=== PATIENT | female | born 1985 | race African-American/Black ===

== ENCOUNTER 2021-08-05 07:30 | Inpatient (IN) ==
[2021-08-05] MEDS ORDERED: OXYTOCIN 30 UNITS/500 ML BAG IV PRN ×2 (08:06→09:16)
[2021-08-05 08:40] LABS: Hematocrit (blood only) 38.6 % (37-47); Hemoglobin 12.2 g/dL (12.0-16.0); Mean Corpuscular Hemoglobin 29.9 pg (25-34); Mean Corpuscular Hgb Conc 31.6 g/dL (32-36); Mean Corpuscular Volume 94.6 fL (80-100); Mean Platelet Volume 11.6 fL (7.4-10.4); Platelet Count 168 K/uL (130-400); RDW Coefficient of Variation 18.4 % (11.5-14.5); RDW Standard Deviation 64.4 fL (36.4-46.3); Red Blood Count 4.08 M/uL (4.2-5.4); White Blood Count 5.32 K/uL (4.8-10.8)
[2021-08-05] MEDS: LACTATED RINGER'S 1,000 ML IV PRN ×4 (08:57→20:52)
--- NOTE | 2021-08-05 09:21 | History & Physical Report ---
Date of Service August 05, 2021 Assessment & Plan (1) Chronic hypertension affecting : Plan: 36yo at 38w3d. presents for induction of labor secondary to chronic hypertension. 1. Fetus: Reactive NST/ Cat 1 2. Labor: s/p Brice. Pitocin per protocol. 3. GBS negative 4. cHTN: Continue home meds 5. Anemia: T&S (2) with 38 completed weeks gestation: Admission and Anticipated Discharge Date Admission Date: August 05, 2021 History of Present Illness Primary Care Provider: NO PCP 36yo at 38w4d Presents for induction of labor secondary to chronic hypertension. Patient Brice placed last night. Patient doing well today denying any leakage of fluid having irregular mild contractions. complicated by: CHTN on meds *Baby ASA daily start 12-28 wks, continue until delivery *wkly NST's @32wks and twice wkly @36 wks *Serial Growth US @ 24 (doppler only if abnml) *Baseline 24hr urine (additioinal PRN) - 281mg (04/28) *weekly RADHA's @ 32wk(if on meds) *Deliver [id number] - - On Labetalol 100mg BID Hx stillbirth at 26wks -Eval negative - Requesting q2week visits until 32 weeks Anemia LABS: Blood Type & RH A positive Antibody Screen negative HCT/HGB 12.9/38.4 Platelets 198 Pap Test normal in 2019 Chlamydia Gonorrhea Rubella immune RPR non reactive Urine Culture/Screen HBsAg non reactive HIV negative MCV 92.3 Ultrasound CF/SMA negative NT- normal Allergies Allergy/AdvReac Type Severity Reaction Status Date / Time No Known Allergies Allergy Verified 08/04/21 09:53 Home Medications Medication Instructions Recorded Confirmed Type aspirin 81 mg tablet,delayed 81 mg PO DAILY 03/10/21 08/04/21 History release (Adult Low Dose Aspirin) prenat.vits,reik,qei-ccmt-rjkgu 1 tab PO DAILY 03/10/21 08/04/21 History labetalol 100 mg tablet 100 mg PO BID #60 tab 04/02/21 08/04/21 Rx ferrous gluconate 324 mg (38 mg 324 mg PO DAILY #90 tab 06/02/21 08/04/21 Rx iron) tablet Patient History Social History (Updated 03/10/21 @ 11:07 by Cassie Zhang) Smoking Status: Never smoker Hx Alcohol Use: No Hx Substance Use: No Preferred Language: Senegalese Communication Ability: Effective Plug Stitcher Required: No Beliefs That Will Affect Care: Sikhism Sikhism Beliefs: mandaen marital status: marital status details: luis manuel (36) [phone] Current Living Situation: Spouse Current Living Situation Comment: lives with spouse, no pets. current occupational status: unemployed Feels Safe at Home: Yes Assistive Devices: Apnea Monitor Physical Exam Genitourinary: Manual OB Exam: + cervical dilation (3), + cervical effacement 70% and + station high OB Exam Monitor Tracing: + external FHT monitor used, + external uterine monitor used, + category I and + normal FHT variability; no early decelerations present, no late decelerations present and no variable decelerations Results & Data ([facility]) Vital Signs (Past 12 Hours) Vital Signs Temp Pulse Resp BP 08/05/21 08:29 36.6 C 66 16 123/71 Coding Level of Care Code None Diagnoses Chronic hypertension affecting O10.919 with 38 completed weeks gestation Z3A.38
[2021-08-05] MEDS ORDERED: fentaNYL citrate 100 MCG/2 ML VIAL ONE (14:13)
[2021-08-05] MEDS ORDERED: BUPIVACAINE 0.25% 30 ML VIAL ONE (14:13)
[2021-08-05] MEDS ORDERED: SODIUM CHLORIDE 0.9% INJ 10 ML VIAL ONE (14:13)
[2021-08-05] MEDS ORDERED: ePHEDrine sulfate 50 MG/ML AMP ONE (14:13)
[2021-08-05] MEDS ORDERED: fentaNYL 2MCG/ML ROPIVACAINE 1.25MG/ML 100 ML BAG EPI ONE (14:14)
--- NOTE | 2021-08-05 14:53 | Anesthesiology Consultation ---
Date of Service August 05, 2021 History Surgery Operation Date: 08/05/21 07:30 Proposed Procedures p Section in LD (Delivery of Baby through abdominal incision) - Reese Maradiaga MD Height/Weight Weight: 69.853 kg Allergies Allergy/AdvReac Type Severity Reaction Status Date / Time No Known Allergies Allergy Verified 08/05/21 10:52 Medications Home Medications Medication Instructions Recorded Confirmed Last Taken aspirin 81 mg tablet,delayed 81 mg PO DAILY 03/10/21 08/05/21 08/05/21 release (Adult Low Dose Aspirin) prenat.vits,erik,cam-oxod-wtada 1 tab PO DAILY 03/10/21 08/05/21 08/05/21 labetalol 100 mg tablet 100 mg PO BID #60 tab 04/02/21 08/05/21 08/05/21 ferrous gluconate 324 mg (38 mg 324 mg PO DAILY #90 tab 06/02/21 08/05/21 08/05/21 iron) tablet Active Medications Generic Name Dose Route Start Last Admin Trade Name Bárbara PRN Reason Stop Dose Admin Lactated Ringer's 1,000 mls @ 125 mls/hr 08/05/21 08:06 08/05/21 14:49 Lr IV 08/07/21 08:05 125 mls/hr .Q8H PRN Infusion L&D Protocol Protocol Oxytocin 30 units in 500 mls @ 8 mls/hr 08/05/21 09:16 08/05/21 11:45 Pitocin IV 08/07/21 09:15 0.48 units/hr .Q24H PRN 8 mls/hr Labor Induction/Augmentation Titration Protocol 0.48 UNITS/HR Past Medical History Medical History (Updated 08/05/21 @ 14:50 by Kyler Restrepo MD) Chronic hypertension affecting with 38 completed weeks gestation Past Surgical History Surgical History (Updated 08/05/21 @ 14:53 by Kyler Restrepo MD) Hx of dilation and curettage Social History Smoking Status: Never smoker Hx Alcohol Use: No Hx Substance Use: No Physical Exam Vital Signs Last Vital Signs Temp 36.6 C 08/05/21 11:42 Pulse 57 L 08/05/21 14:49 Resp 18 08/05/21 11:50 BP 131/62 08/05/21 14:49 Pulse Ox 100 08/05/21 14:49 Testing Laboratory Results 08/05/21 08:13 Blood Type A Positive 08/05/21 08:13 Antibody Screen NEGATIVE 08/05/21 08:13
[2021-08-05] MEDS ORDERED: ePHEDrine sulfate 50 MG/ML AMP IV PRN (15:11)
[2021-08-05] MEDS ORDERED: NALOXONE HCL 0.4 MG/1 ML VIAL/CARP IV PRN (15:11)
[2021-08-05] MEDS ORDERED: NALOXONE HCL 1 MG in SODIUM CHLORIDE 0.9% 1000ML 1,000 ML IV PRN (15:11)
[2021-08-05] MEDS ORDERED: fentaNYL 2MCG/ML ROPIVACAINE 1.25MG/ML 100 ML BAG EPI PRN (15:11)
[2021-08-05] MEDS ORDERED: ONDANSETRON INJ 2 MG/ML 2 ML VIAL IV PRN (15:11)
--- NOTE | 2021-08-05 17:06 | Labor Progress Brief Note ---
Date of Service August 05, 2021 Subjective Reason For Note: Routine Evaluation Assessment & Plan (1) Chronic hypertension affecting : Plan: 36yo at 38w3d. presents for induction of labor secondary to chronic hypertension. 1. Fetus: Reactive NST/ Cat 1 2. Labor:Progressing. s/p Brice. Pitocin per protocol. AROM clr 3. GBS negative 4. cHTN: Continue home meds 5. Anemia: T&S (2) with 38 completed weeks gestation: Admission and Anticipated Discharge Date Admission Date: August 05, 2021 Physical Exam Genitourinary: Manual OB Exam: + cervical dilation 4 cm, + cervical effacement 70% and + station -2 OB Exam Monitor Tracing: + external FHT monitor used, + external uterine monitor used, + category I and + normal FHT variability; no early decelerations present, no late decelerations present and no variable decelerations Results & Data ([facility]) Vital Signs (Past 12 Hours) Vital Signs Temp Pulse Resp BP Pulse Ox 08/05/21 16:59 61 100 08/05/21 16:54 63 100 08/05/21 16:49 61 100 08/05/21 16:44 62 100 08/05/21 16:39 62 138/62 100 08/05/21 16:34 59 L 100 08/05/21 16:29 63 100 08/05/21 16:25 59 L 121/61 08/05/21 16:24 57 L 100 08/05/21 16:19 61 100 08/05/21 16:14 63 100 08/05/21 16:09 63 122/82 100 08/05/21 16:04 63 119/64 100 08/05/21 15:59 63 100 08/05/21 15:54 60 100 08/05/21 15:50 16 08/05/21 15:49 59 L 100 08/05/21 15:44 59 L 100 08/05/21 15:39 53 L 99 08/05/21 15:34 58 L 100 08/05/21 15:29 59 L 100 08/05/21 15:24 57 L 99 08/05/21 15:22 63 106/59 L 08/05/21 15:19 61 102/56 L 100 08/05/21 15:16 58 L 113/56 L 08/05/21 15:14 54 L 100 08/05/21 15:13 51 L 111/57 L 08/05/21 15:10 56 L 110/58 L 08/05/21 15:09 36.4 C L 64 18 99 08/05/21 15:07 59 L 132/63 08/05/21 15:04 53 L 106/60 100 08/05/21 14:59 56 L 100 08/05/21 14:54 64 100 08/05/21 14:49 57 L 131/62 100 08/05/21 13:38 68 136/66 08/05/21 13:10 64 128/76 08/05/21 11:50 18 08/05/21 11:42 36.6 C 67 111/57 L 08/05/21 09:20 18 08/05/21 08:29 36.6 C 66 16 123/71 Coding Level of Care Code None Diagnoses Chronic hypertension affecting O10.919 with 38 completed weeks gestation Z3A.38
[2021-08-06] MEDS ORDERED: SUPERCREAM 0.870% 15 GM JAR EXT PRN (00:18)
[2021-08-06] MEDS ORDERED: BENZOCAINE 20% AER SPR 82.5 GM CAN EXT PRN (00:18)
[2021-08-06] MEDS ORDERED: HYDROCORTISONE ACETATE 25 MG SUPP PR PRN (00:18)
[2021-08-06] MEDS ORDERED: DIPHTHERIA/TETANUS/PERTUSSIS 0.5 ML SYR/VIAL IM ONE (00:18)
[2021-08-06] MEDS ORDERED: ACETAMINOPHEN 325 MG TAB PO PRN (00:18)
[2021-08-06] MEDS ORDERED: OXYTOCIN 30 UNITS/500 ML BAG IV PRN (00:18)
[2021-08-06] MEDS: IBUPROFEN 600 MG TAB PO PRN ×3 (01:03→20:20)
--- NOTE | 2021-08-06 01:14 | Anesthesia Procedure Note ---
Date of Service August 06, 2021 Anesthesia Post Epidural Note Vital Signs Vital Signs: Temp Pulse Resp BP Pulse Ox 37.1 C 58 L 18 121/61 99 08/05/21 20:55 08/06/21 01:06 08/06/21 01:05 08/06/21 01:06 08/06/21 00:24 Pain Intensity Bilateral Episiotomy/Laceration: Pain Intensity: 2 Notes Mental Status: alert / awake / arousable and participated in evaluation Nausea / Vomiting: adequately controlled Pain: adequately controlled Airway Patency, RR, SpO2: stable & adequate BP & HR: stable & adequate Hydration State: stable & adequate Neuraxial Anesthesia: was administered and sensory block is resolving Anesthetic Complications: no major complications apparent Epidural: Removed without complications and With tip intact
[2021-08-06 06:23] LABS: Hematocrit (blood only) 36.7 % (37-47); Hemoglobin 11.8 g/dL (12.0-16.0)
--- NOTE | 2021-08-06 07:06 | Obstetrical Progress Note ---
Date of Service <De Edge DO - Last Filed: 08/06/21 07:55> August 06, 2021 Assessment & Plan <De Edge DO - Last Filed: 08/06/21 07:55> (1) Encounter for care and examination after delivery: 36 yo post day 1 from vaginal delivery, doing well. -Continue routine post care. -vital signs reviewed and WNL. (Tmax 37.1) -Blood type A+, GBS negative, Rubella Immune -Encourage ambulation, monitor and control pain with Motrin, tylenol PRN, resume regular diet, monitor lochia. -encourage breast feeding. Already has breast pump ordered. -hemoglobin 11.8. <Reese Maradiaga MD - Last Filed: 08/09/21 08:20> (1) Encounter for care and examination after delivery: Subjective <De Edge DO - Last Filed: 08/06/21 07:55> Ambulation: ambulating normally Voiding: no voiding problems Passing Gas:: Yes Diet Tolerance:: regular diet Lochia:: Small Feeding Type:: breast feeding Current Pain Level(1-10): 0 Review of Systems Denies fever, chills, sweats Denies shortness of breath, difficulty breathing, chest pain, palpitations, chest pressure. Denies breast pain. Denies dysuria. Denies headache or changes in vision Physical Exam <De Edge DO - Last Filed: 08/06/21 07:55> General: Alert, oriented. No acute distress. Cardiac: Regular rate and rhythm, no murmurs/rubs/gallops. Respiratory: Clear to auscultation bilaterally a/p, no wheezes/rales/rhonchi. No increased work of breathing. Symmetrical chest rise. No respiratory distress. Abdomen: Soft, nontender, nondistended. Bowel sounds present. Uterus: Uterine fundus firm, palpable 2 cm below umbilicus. Lower Extremities: No lower extremity edema or swelling. No deep calf pain. Chon's negative bilaterally Results & Data ([facility]) <De Edge DO - Last Filed: 08/06/21 07:55> Vital Signs (Past 12 Hours) Vital Signs Temp Pulse Pulse Resp BP BP Pulse Ox 08/06/21 03:00 36.9 C 72 16 114/69 98 08/06/21 02:06 80 108/58 L 08/06/21 02:05 80 20 108/58 L 08/06/21 01:51 68 111/54 L 08/06/21 01:42 57 L 116/56 L 08/06/21 01:35 57 L 18 116/56 L 08/06/21 01:21 63 117/59 L 08/06/21 01:06 58 L 121/61 08/06/21 01:05 58 L 18 121/61 08/06/21 00:51 61 119/58 L 08/06/21 00:50 58 L 18 121/61 08/06/21 00:37 60 98/55 L 08/06/21 00:35 61 18 119/58 L 08/06/21 00:24 69 99 08/06/21 00:21 121 H 133/68 08/06/21 00:20 71 18 99 08/06/21 00:19 74 100 08/06/21 00:14 71 99 08/06/21 00:09 73 100 08/06/21 00:06 65 124/59 L 08/06/21 00:05 71 18 99 08/06/21 00:04 72 99 08/05/21 23:59 70 100 08/05/21 23:55 68 92/51 L 08/05/21 23:54 125 H 54/39 L 99 08/05/21 23:49 73 100 08/05/21 23:44 72 99 08/05/21 23:40 69 131/59 L 08/05/21 23:39 72 99 08/05/21 23:34 68 100 08/05/21 23:29 70 100 08/05/21 23:24 70 122/75 100 08/05/21 23:19 81 100 08/05/21 23:14 71 90 08/05/21 23:09 97 H 99 08/05/21 23:04 65 100 08/05/21 23:00 92 H 18 89 L 08/05/21 22:59 70 100 08/05/21 22:54 70 100 08/05/21 22:49 70 99 08/05/21 22:44 74 100 08/05/21 22:43 78 92 08/05/21 22:39 72 100 08/05/21 22:34 64 100 08/05/21 22:29 64 100 08/05/21 22:24 67 125/58 L 100 08/05/21 22:19 67 100 08/05/21 22:14 63 100 08/05/21 22:09 67 115/57 L 100 08/05/21 22:04 72 100 08/05/21 22:00 18 08/05/21 21:59 69 100 08/05/21 21:54 65 102/53 L 100 08/05/21 21:49 77 99 08/05/21 21:44 64 99 08/05/21 21:40 68 125/78 08/05/21 21:39 70 97 08/05/21 21:34 66 100 08/05/21 21:30 18 08/05/21 21:29 64 100 08/05/21 21:24 65 125/60 100 08/05/21 21:19 65 100 08/05/21 21:14 68 100 08/05/21 21:10 64 115/59 L 08/05/21 21:09 66 100 08/05/21 21:04 66 100 08/05/21 21:00 18 08/05/21 20:59 65 100 08/05/21 20:55 37.1 C 69 113/58 L 08/05/21 20:54 68 100 08/05/21 20:49 80 100 08/05/21 20:44 72 100 08/05/21 20:39 66 107/60 100 08/05/21 20:34 64 99 08/05/21 20:30 18 08/05/21 20:29 66 98 08/05/21 20:24 64 118/62 99 08/05/21 20:19 76 100 08/05/21 20:14 70 100 08/05/21 20:09 71 110/58 L 100 08/05/21 20:04 69 100 08/05/21 20:00 18 08/05/21 19:59 66 99 08/05/21 19:55 71 127/66 08/05/21 19:54 69 100 08/05/21 19:49 68 100 08/05/21 19:44 71 100 08/05/21 19:41 71 129/67 08/05/21 19:39 72 100 08/05/21 19:34 72 99 08/05/21 19:30 18 08/05/21 19:29 75 100 08/05/21 19:25 70 115/62 08/05/21 19:24 72 100 08/05/21 19:19 69 100 08/05/21 19:14 79 99 08/05/21 19:11 74 136/59 L 08/05/21 19:10 36.9 C 20 08/05/21 19:09 71 99 08/05/21 19:04 118 H 100 <Reese Maradiaga MD - Last Filed: 08/09/21 08:20> Co-Signing Physician Notes Patient seen and evaluated and agree with the above findings and plan. Routine care Resident Activity Tracking <De Edge DO - Last Filed: 08/06/21 07:55> Resident Involvement: Resident Care Provided Care Provided: OB Delivery
--- NOTE | 2021-08-06 08:20 | Delivery Summary ---
DATE OF SERVICE: 08/05/2021 PROCEDURE: Normal spontaneous vaginal delivery with second-degree perineal laceration repair and rig ht labial laceration repair. SURGEON: Reese Maradiaga MD. PREOPERATIVE DIAGNOSES: 1. Single intrauterine at 38 weeks 4 days gestational age. 2. Chronic hypertension affecting . 3. Anemia. POSTOPERATIVE DIAGNOSES: 1. Single intrauterine at 38 weeks 4 days gestational age. 2. Chronic hypertension affecting . 3. Anemia. 4. Status post procedure. ESTIMATED BLOOD LOSS: 300 mL. DRAINS: None. FLUIDS: Continuous lactated Ringer. URINE OUTPUT: Not measured. COMPLICATIONS: None. FINDINGS: Viable male infant with weight and Apgars pending. INDICATIONS: Magnolia is a 36-year-old -1-3-0, admitted at 38 weeks 4 days gestational age for induction of labor secondary to chronic hypertension. At initial evaluation, Brice had been expelle d and she was around 3 cm dilated, 50% effaced, negative 3 station. The patient was started on oxyto ora per regular protocol. She underwent artificial rupture of membranes and shortly thereafter recei alyson an epidural for anesthesia. The patient progressed in labor to complete-complete, +2 station, at which time she felt the urge to push and pushed for approximately 1 hour to achieve delivery. DESCRIPTION OF PROCEDURE: The patient progressed to 10 cm dilated, 100% effaced, positive 2 station, pushed over intact perineum with epidural anesthesia, delivered a viable male with weight and Apgars as noted above. Head of the delivered in JUSTIN position, restituted to left transverse . No nuchal cord was noted. Body and shoulders quickly followed. was noted to be vigorous upon delivery and a 1 minute delayed cord clamping was initiated. Cord was then double clamped and c ut. remained on maternal abdomen. Cord blood was obtained. Attention was then turned to hansen of the placenta, which was delivered intact, 3-vessel cord, gentle cord traction. On inspecti on of the perineum, vagina, cervix, there was noted to be a second-degree perineal laceration and a r ight labial laceration. The perineal laceration was repaired in a traditional crown stitch using 3-0 Vicryl. The labial laceration was repaired in interrupted stitch of 3-0 Vicryl. Needle, sponge, an d instrument counts were correct at the completion of the case. Both mother and were stable in the immediate post-delivery period. Job ID: [id number]
[2021-08-06] MEDS: DOCUSATE SODIUM 100 MG CAP PO SCH ×2 (09:28→20:20)
[2021-08-06] MEDS: PRENATAL VITAMIN 1 TAB PO SCH (09:29)
--- NOTE | 2021-08-07 06:25 | Obstetrical Progress Note ---
Date of Service <De Edge DO - Last Filed: 08/07/21 08:42> August 07, 2021 Assessment & Plan <De Edge DO - Last Filed: 08/07/21 08:42> (1) Encounter for care and examination after delivery: 36 yo post day 1 from vaginal delivery, doing well. -Continue routine post care. -vital signs reviewed and WNL. (Tmax 37.1) -Blood type A+, GBS negative, Rubella Immune -Encourage ambulation, monitor and control pain with Motrin, tylenol PRN, resume regular diet, monitor lochia. -encourage breast feeding. Already has breast pump ordered. -Discussed discharge with patient this morning. Patient will follow up with Dr. Maradiaga in office in 6 weeks. <Megan White MD, FACOG - Last Filed: 08/07/21 08:51> (1) Encounter for care and examination after delivery: Subjective <De Edge DO - Last Filed: 08/07/21 08:42> Ambulation: ambulating normally Voiding: no voiding problems Passing Gas:: Yes Diet Tolerance:: regular diet Lochia:: Small Feeding Type:: breast feeding Current Pain Level(1-10): 0 Review of Systems Denies fever, chills, sweats Denies shortness of breath, difficulty breathing, chest pain, palpitations, chest pressure. Denies breast pain. Denies dysuria. Denies headache or changes in vision Physical Exam <De Edge DO - Last Filed: 08/07/21 08:42> General: Alert, oriented. No acute distress. Cardiac: Regular rate and rhythm, no murmurs/rubs/gallops. Respiratory: Clear to auscultation bilaterally a/p, no wheezes/rales/rhonchi. No increased work of breathing. Symmetrical chest rise. No respiratory distress. Abdomen: Soft, nontender, nondistended. Bowel sounds present. Uterus: Uterine fundus firm, palpable 2 cm below umbilicus. Lower Extremities: No lower extremity edema or swelling. No deep calf pain. Chon's negative bilaterally Results & Data ([facility]) <De Edge DO - Last Filed: 08/07/21 08:42> Vital Signs (Past 12 Hours) Vital Signs Temp Pulse Resp BP Pulse Ox 08/06/21 23:55 36.6 C 68 18 111/71 95 08/06/21 20:00 36.4 C L 83 18 102/65 96 <Megan White MD, FACOG - Last Filed: 08/07/21 08:51> Co-Signing Physician Notes Resident Physician Supervision Note: I was present with Dr. Edge during the history and exam. I discussed the case with the resident and agree with the findings and plan as documented in the note. Any exceptions or clarifications are listed here: doing well, ready to go home. bps stable. will stay on current meds due to chtn. f/u 6wk pp check. instructions reviewed. Documented By: Megan White MD, FACOG Resident Activity Tracking <De Edge DO - Last Filed: 08/07/21 08:42> Resident Involvement: Resident Care Provided Care Provided: OB Delivery
[2021-08-07] MEDS: PRENATAL VITAMIN 1 TAB PO SCH (09:56)
[2021-08-07] MEDS: DOCUSATE SODIUM 100 MG CAP PO SCH (09:56)
[2021-08-07] MEDS ORDERED: bisacodyL 5 MG TABEC PO SCH (20:00)
[2021-08-08] MEDS ORDERED: bisacodyL 10 MG SUPP PR PRN
== END 2021-08-07 16:45 | disposition home or self-care (01) | DRG 807 ==
LOC: EDSTATUS 07:30 → 4S1 07:58 → 4S2 08-06 02:42
DX: D64.9 Anemia, unspecified; O99.02 Anemia complicating childbirth; O10.92 Unspecified pre-existing hypertension complicating childbirth; Z79.82 Long term (current) use of aspirin; O09.293 Supervision of pregnancy with other poor reproductive or obstetric history, third trimester; Z37.0 Single live birth; Z3A.38 38 weeks gestation of pregnancy; O70.1 Second degree perineal laceration during delivery; Z79.899 Other long term (current) drug therapy